=== PATIENT | female | born 2000 | race Caucasian/White ===

== ENCOUNTER 2020-04-12 14:42 | Observation (INO) | payer OTHER ==
[2020-04-12 14:49] VITALS: RESP 18
--- NOTE | 2020-04-12 15:05 | ED ---
Chest Pain HPI - General Source: patient Mode of arrival: ambulatory Limitations: no limitations <Fritz Marie - Last Filed: 04/12/20 18:50> <Cassandra Rodriguez - Last Filed: 04/16/20 11:36> - General Chief Complaint: Chest Pain Stated Complaint: Chest pressure Time Seen by Provider: 04/12/20 14:52 - History of Present Illness Initial Comments: Patient is a 19-year-old female presenting to the emergency department with a chief complaint of chest pressure. Patient reports she woke up this morning and noticed some midsternal chest pressure. States she feels like there is air trapped in her neck. States there is some voice change. Does report shortness of breath at rest. States last night she inhaled nitrous for the first time. States it was large amount of pressure that went into her lungs. Denies lightheadedness or dizziness. States she was at the urgent care today and advised to come to the emergency department. (Fritz Marie) - Related Data Home Medications Medication Instructions Recorded Confirmed Omeprazole 20 mg PO DAILY 04/12/20 04/12/20 Allergies Allergy/AdvReac Type Severity Reaction Status Date / Time No Known Allergies Allergy Verified 04/12/20 15:41 Review of Systems ROS Other: All systems not noted in ROS Statement are negative. <Fritz Marie - Last Filed: 04/12/20 18:50> ROS Other: All systems not noted in ROS Statement are negative. <Cassandra Rodriguez - Last Filed: 04/16/20 11:36> ROS Statement: Those systems with pertinent positive or pertinent negative responses have been documented in the HPI. EKG Findings - EKG Comments: EKG Findings:: Sinus rhythm, no ST or T-wave changes. Objective rate 80, IN 152, QRS 92, QTC 438. <Fritz Marie - Last Filed: 04/12/20 18:50> Past Medical History Past Medical History: No Reported History Additional Past Medical History / Comment(s): gerd History of Any Multi-Drug Resistant Organisms: None Reported Past Surgical History: No Surgical Hx Reported Past Psychological History: No Psychological Hx Reported Smoking Status: Never smoker Past Alcohol Use History: Unable to Obtain Past Drug Use History: None Reported <Fritz Marie - Last Filed: 04/12/20 18:50> General Exam Limitations: no limitations General appearance: alert, in no apparent distress Head exam: Present: atraumatic, normocephalic, normal inspection Eye exam: Present: normal appearance, PERRL, EOMI Pupils: Present: normal accommodation ENT exam: Present: normal exam, mucous membranes moist Neck exam: Present: normal inspection, full ROM, other Respiratory exam: Present: normal lung sounds bilaterally, stridor. Absent: respiratory distress, wheezes, rales, rhonchi Cardiovascular Exam: Present: regular rate, normal rhythm, normal heart sounds. Absent: systolic murmur, diastolic murmur Extremities exam: Present: normal inspection, full ROM Back exam: Present: normal inspection, full ROM Neurological exam: Present: alert, oriented X3 Psychiatric exam: Present: normal affect, normal mood Skin exam: Present: warm, dry, intact, normal color <Fritz Marie - Last Filed: 04/12/20 18:50> Course Vital Signs 04/12/20 04/12/20 04/12/20 14:47 15:41 16:20 Temperature 98.2 F Pulse Rate 88 66 Respiratory 18 18 18 Rate Blood Pressure 121/81 120/80 O2 Sat by Pulse 98 97 Oximetry 04/12/20 04/12/20 19:08 19:09 Temperature 98.2 F Pulse Rate 66 66 Respiratory 18 18 Rate Blood Pressure 122/87 122/87 O2 Sat by Pulse 97 97 Oximetry Chest Pain [facility] - Differential Diagnosis Pneumomediastinum <Fritz Marie - Last Filed: 04/12/20 18:50> <Cassandra Rodriguez - Last Filed: 04/16/20 11:36> - [facility] Patient is a 19-year-old female presenting to emergency Department with chief complaint of chest pain. EKG is unremarkable. X-ray reveals a pneumomediastinum. CT was obtained confirming the diagnosis. Patient appears to have extensive amounts of air in the upper chest and neck. Patient also reports some changes in her voice. I suspect the pneumomediastinum secondary to inhalation of nitrous last night. Patient otherwise feels well. also examined the patient. She spoke with and Dr. Longo like to admit the patient further medical management. Repeat imaging will be obtained in the morning. Admitting physician is . Dr. Longo on consult (Fritz Marie) I was available for consultation in the emergency department. The history and physical exam were done by the midlevel provider. I was consulted for this patients care. I reviewed the case with the midlevel provider and based on their presentation of the patient, I agree with the assessment, medical decision making and plan of care as documented. Chart was dictated using Zollo dictation software. Attempts were made to correct any dictation errors however some typographical errors may persist. Patient was seen during a national state of emergency due to the Covid-19 pandemic. (Cassandra Rodriguez) Disposition Is patient prescribed a controlled substance at d/c from ED?: No Time of Disposition: 18:53 <Fritz Marie - Last Filed: 04/12/20 18:50> <Cassandra Rodriguez - Last Filed: 04/16/20 11:36> Clinical Impression: Pneumomediastinum Disposition: ADMITTED IP TO THIS HOSP Condition: Stable
--- NOTE | 2020-04-12 15:44 | XR ---
EXAMINATION TYPE: XR chest 2V DATE OF EXAM: 04/12/2020 COMPARISON: NONE HISTORY: Chest pain TECHNIQUE: 2 views FINDINGS: There is pneumomediastinum with air also in the soft tissues at the base of the neck bilate rally. Heart is normal. Costophrenic angles are clear. The lungs are clear of infiltrate. There is no pneumothorax. Bony thorax is intact. IMPRESSION: There is pneumomediastinum. Findings were discussed with patient's physician at 3:41 PM.
[2020-04-12] MEDS ORDERED: RX INFO: IV CONTRAST WAS GIVEN 1 EACH MISC MISCELLANE PRN (16:04)
--- NOTE | 2020-04-12 16:57 | CT ---
EXAMINATION TYPE: CT chest w con DATE OF EXAM: 04/12/2020 COMPARISON: None HISTORY: Chest pain, voice changes and SOB CT DLP: 219.7 mGycm Automated exposure control for dose reduction was used. CONTRAST: Performed with IV Contrast, patient injected with 100 mL of Isovue 300. Images were obtained from the thoracic inlet to the diaphragm with intravenous contrast. FINDINGS: There is extensive soft tissue air at the base of the neck extending around the thyroid gland and int o the mediastinum. There is air around the trachea and esophagus. Heart size is normal. There is no m ediastinal adenopathy. There are no hilar masses. There is no pericardial effusion. The lungs are damien ar of infiltrate. There is no pneumothorax. Bony thorax is intact. Pulmonary vascularity is normal. T here is normal contrast opacification of the pulmonary arteries. IMPRESSION: Pneumomediastinum. There is probably no change compared to chest x-ray today. No pneumothorax. No acu te lung disease.
[2020-04-12] MEDS ORDERED: MORPHINE SULFATE 4 MG/ML SYRINGE IV PRN (18:37)
[2020-04-12] MEDS ORDERED: NALOXONE 0.4 MG/ML 1 ML VIAL IV PRN (18:37)
[2020-04-12] MEDS ORDERED: ACETAMINOPHEN TAB 325 MG TAB PO PRN (18:37)
[2020-04-12] MEDS ORDERED: ONDANSETRON 4 MG/2 ML VIAL IVP PRN (18:37)
[2020-04-12] MEDS: KETOROLAC 30 MG/ML 1 ML VIAL IVP PRN (19:43)
[2020-04-13] MEDS: KETOROLAC 30 MG/ML 1 ML VIAL IVP PRN (02:03)
--- NOTE | 2020-04-13 08:23 | XR ---
EXAMINATION TYPE: XR chest 2V DATE OF EXAM: 04/13/2020 COMPARISON: 04/12/2020 HISTORY: Pneumomediastinum. Follow-up exam. TECHNIQUE: Frontal and lateral views of the chest are obtained. FINDINGS: Pneumomediastinum is redemonstrated minimal improved subcutaneous emphysema of the and nec k. Lungs are well aerated. No pneumothorax seen. No new focal consolidation. Cardiomediastinal silhou ette size is within normal limits. IMPRESSION: Stable minimal pneumomediastinum and improving of the neck.
[2020-04-13 08:44] VITALS: BP 102/66; PULSE 67; TEMP 97.7
--- NOTE | 2020-04-13 09:27 | P.HPIM ---
History of Present Illness H&P Date: 04/12/20 Chief Complaint: chest pain 19 yo female presents to the ED with chest pain and pressure. She reports inhaling nitrous for the first time yesterday with a large amount of pressurized gas entering her lungs. She did not experience any significant pain at the time, but the following morning she woke up with severe neck and chest pain, with the sensation that "air is trapped under my neck". She also complains of shortness of breath, change in voice, no difficulty swallowing, denies any dizziness, no syncope, no cough, fever or chills. She went to an urgent care and was redirected to the ED after a finding of a pneumo-mediastinum. In the ED vitals and oxygenation were normal, CT of the chest and neck confirmed the findings on XR. patient will be admitted for close observation over the next 24 hrs. Review of Systems Constitutional: Denies chills, Denies fatigue, Denies fever, Denies sweats Ears, nose, mouth and throat: Reports dysphagia, Reports neck fullness/pressure, Denies headache, Denies hoarseness, Denies swelling in mouth Cardiovascular: Reports chest pain Respiratory: Reports dyspnea, Denies congestion, Denies cough Gastrointestinal: Reports heartburn, Denies diarrhea, Denies nausea, Denies vomiting Musculoskeletal: Denies arm numbness/tingling, Denies leg numbness/tingling, Denies limitation of motion Integumentary: Denies rash Neurological: Reports change in speech, Denies confusion, Denies headaches, Denies numbness Past Medical History Additional Past Medical History / Comment(s): gerd History of Any Multi-Drug Resistant Organisms: None Reported Past Surgical History: No Surgical Hx Reported Past Anesthesia/Blood Transfusion Reactions: No Reported Reaction Past Psychological History: No Psychological Hx Reported Smoking Status: Never smoker Past Alcohol Use History: Daily Past Drug Use History: Marijuana - Past Family History Father History Unknown: Yes Family Medical History: CVA/TIA, Hypertension Mother Family Medical History: No Reported History Medications and Allergies Home Medications Medication Instructions Recorded Confirmed Type Omeprazole 20 mg PO DAILY 04/12/20 04/12/20 History Allergies Allergy/AdvReac Type Severity Reaction Status Date / Time No Known Allergies Allergy Verified 04/12/20 15:41 Physical Exam Osteopathic Statement: *. No significant issues noted on an osteopathic structural exam other than those noted in the History and Physical/Consult. Vitals: Vital Signs Temp Pulse Pulse Resp BP BP Pulse Ox 04/13/20 03:08 59 L 18 04/13/20 03:03 96.1 F L 59 L 18 104/58 99 04/12/20 23:39 96.9 F L 88 18 106/56 100 04/12/20 23:35 88 18 04/12/20 20:00 96.7 F L 73 18 111/65 100 04/12/20 19:09 98.2 F 66 18 122/87 97 04/12/20 19:08 66 18 122/87 97 04/12/20 16:20 66 18 120/80 97 04/12/20 15:41 18 04/12/20 14:47 98.2 F 88 18 121/81 98 Intake and Output 04/12/20 04/13/20 04/13/20 22:59 06:59 14:59 Other: # Voids 1 Weight 49.895 kg - Constitutional General appearance: average body habitus, cooperative, no no acute distress - EENT Eyes: EOMI, PERRLA - Neck extensive b/l crepitus on the anterior and lateral sides of the neck Neck: no lymphadenopathy, normal ROM, no rigidity - Respiratory Respiratory: bilateral: CTA, negative: rhonchi, wheezing - Cardiovascular Rhythm: regular Heart sounds: normal: S1, S2 Abnormal Heart Sounds: no systolic murmur, no diastolic murmur - Gastrointestinal General gastrointestinal: no distended, normal bowel sounds, no tenderness - Integumentary Integumentary: no cyanotic, no jaundiced, no pale, no rash - Neurologic Neurologic: CNII-XII intact - Musculoskeletal Musculoskeletal: strength equal bilaterally - Psychiatric Psychiatric: A&O x's 3, appropriate affect Thrombosis Risk Factor Assmnt - Choose All That Apply Any of the Below Risk Factors Present?: No Other Risk Factors: No Other congenital or acquired thrombophilia - If yes, enter type in comment: No Thrombosis Risk Factor Assessment Level: Very Low Risk Assessment and Plan Plan: # Pneumomediastinum -induced by inhaling pressurized nitrous gas -CT neck shows extensive subcutaneous air trapping -oxygenation, respiratory status stable -pain control -repeat CXR in am -appreciate further input from pulmonology # Substance abuse -patient has history of daily alcohol consumption, marijuana, and recently nitrous gas -counseled on alcohol and drug cessation # GERD -continue Omeprazole Anticipated DC home in the next 24 hrs Time with Patient: Greater than 30
--- NOTE | 2020-04-13 10:26 | CONS ---
CONSULTATION PULMONARY/CRITICAL CARE CONSULTATION: DATE OF CONSULTATION: 04/13/2020 This is a 19-year-old female with a history of acid reflux disease. She apparently was intoxicated with her boyfriend. She did a Whip[employer]It. This is compressed nitrous oxide. Unfortunately, she developed a pneumomediastinum by doing the Whip-It She was seen in the emergency room by Dr. Rodriguez. She had a change in her voice. In addition, she had significant pain in the chest and neck area as well as subcutaneous emphysema and also pneumomediastinum. She did not have a pneumothorax. Currently, the patient is doing better. Her chest x-ray and CT scan from yesterday are reviewed. Today's chest x-ray is improved. I did tell the patient that this typically would resolve on its own and I will see her in the office tomorrow just to get a followup chest x-ray. The patient otherwise states that she is healthy and feeling almost back to normal. She states her voice is a little off still. HOME MEDICATIONS: Include primarily omeprazole for her acid reflux disease. ALLERGIES: Denied. MEDICAL HISTORY: Acid reflux disease. SOCIAL HISTORY: Denied. FAMILY HISTORY: Family history is unremarkable. Her father did from a stroke when she was 10 years of age. Mother is healthy. She denies tobacco use. She does drink alcohol from time to time. Denies any other illicit drug use. She denies vaping and using marijuana. SURGICAL HISTORY: As I mentioned, is unremarkable. REVIEW OF SYSTEMS: CONSTITUTIONAL: Negative. NEUROLOGIC: Negative. HEENT: Change in voice, which is resolved, and pain in the neck area. CARDIOVASCULAR: Negative. PULMONARY: Shortness of breath and chest discomfort, improved. GI: Negative. : Negative. RHEUMATOLOGIC: Negative. IMMUNOLOGIC: Negative. ENDOCRINOLOGIC: Negative, DERMATOLOGIC: Negative. PHYSICAL EXAMINATION: VITAL SIGNS: Current vital signs are reviewed. Her temperature is 97.7, heart rate 67, respiratory rate 18, blood pressure 102/66, mean 78, room air saturation is 100%. Appears in no acute distress. HEENT: Examination is unremarkable. NECK: Supple. Full range of motion. No adenopathy or thyromegaly. Neck veins are flat. I do not feel any subcutaneous emphysema. CARDIOVASCULAR: Examination reveals regular rhythm rate. S1, S2 normal. LUNGS: Reveal clear breath sounds equal. ABDOMEN: Soft. Bowel sounds are heard. EXTREMITIES are intact. No cyanosis, clubbing, or edema. SKIN: Without rash. NEUROLOGIC: Examination is brief but non focal. X-rays from yesterday and today are both reviewed. The CT scan from April 12 was also reviewed. There is no lab work that was done. Current medications include Tylenol, Toradol, morphine, Narcan, Zofran. ASSESSMENT: 1. Subcutaneous emphysema and pneumomediastinum secondary to inhaling compressed nitrous oxide in a can of [employer]. 2. History of acid reflux disease. PLAN: Currently, her chest x-ray is improved. Her subcutaneous emphysema is less. I do not feel Gerardo's crunch. She will follow up with me in the office either Tuesday or Tuesday for a followup chest x-ray. No additional recommendations are made. I encouraged her to take it easy today, not smoke cigarettes or do any drugs and not drink any alcohol. She apparently was intoxicated when she did the compressed nitrous oxide. I told her not to do it again. Additional recommendations and suggestions are forthcoming. MMODL / IJN: [id number] / MTDD
--- NOTE | 2020-04-13 11:11 | P.DS ---
Providers Date of admission: 04/12/20 18:49 Attending physician: Amber Pittman MD Consults: 04/12/20 18:23 Consult Physician Routine Consulting Provider: Mitchell Longo Consult Reason/Comments: pneumomediastinum Do you want consulting provider notified?: Already Contacted Primary care physician: Stated None Hospital Course: 19 yo female presents to the ED with chest pain and pressure. She reports inhali ng nitrous for the first time yesterday with a large amount of pressurized gas entering her lungs. She did not experience any significant pain at the time, but the following morning she woke up with severe neck and chest pain, with the sensation that "air is trapped under my neck". She also complains of shortness of breath, change in voice, no difficulty swallowing, denies any dizziness, no syncope, no cough, fever or chills. She went to an urgent care and was redirected to the ED after a finding of a pneumo-mediastinum. In the ED vitals and oxygenation were normal, CT of the chest and neck confirmed the findings on XR. Repeat CXR the following morning showed improvement of the subcutaneous air. Pain has improved significantly, vitals and oxygenation have been normal. Patient will be discharged home in stable condition. Instructed to use OTC NSAIDs or Acetaminophen for pain control, follow up with pulmonology Constitutional General appearance: average body habitus, cooperative, no no acute distress - EENT Eyes: EOMI, PERRLA - Neck improved b/l crepitus on the anterior and lateral sides of the neck Neck: no lymphadenopathy, normal ROM, no rigidity - Respiratory Respiratory: bilateral: CTA, negative: rhonchi, wheezing - Cardiovascular Rhythm: regular Heart sounds: normal: S1, S2 Abnormal Heart Sounds: no systolic murmur, no diastolic murmur - Gastrointestinal General gastrointestinal: no distended, normal bowel sounds, no tenderness - Integumentary Integumentary: no cyanotic, no jaundiced, no pale, no rash - Neurologic Neurologic: CNII-XII intact -Musculoskeletal Musculoskeletal: strength equal bilaterally - Psychiatric Psychiatric: A&O x's 3, appropriate affect Assessment and Plan Plan: # Pneumomediastinum -induced by inhaling pressurized nitrous gas -CT neck shows extensive subcutaneous air trapping -repeat CXR shows improvement -follow up with Pulmonology in 2-3 days # Substance abuse -patient has history of daily alcohol consumption, marijuana, and recently nitrous gas -counseled on alcohol and drug cessation # GERD -continue Omeprazole Patient Condition at Discharge: Stable Plan - Discharge Summary Discharge Rx Participant: No New Discharge Prescriptions: No Action Omeprazole 20 mg PO DAILY Discharge Medication List Omeprazole 20 mg PO DAILY 04/12/20 [History] Follow up Appointment(s)/Referral(s): Mitchell Longo DO [Doctor of Osteopathic Medicine] - 1-2 Days (Call office on Tuesday morning to schedule appointment on Tuesday or Tuesday of this week with Dr. Longo) None,Stated [Primary Care Provider] - 1-2 days Discharge Disposition: HOME SELF-CARE
== END 2020-04-13 11:01 | disposition home or self-care (01) ==
LOC: EC 14:42 → 1SOBS 18:49
PROVIDERS: ADMIT Internal Medicine; ATTEND Internal Medicine
DX: T79.7XXA Traumatic subcutaneous emphysema, initial encounter (principal); F18.188 Inhalant abuse with other inhalant-induced disorder; F10.10 Alcohol abuse, uncomplicated; F12.10 Cannabis abuse, uncomplicated; Z11.59 Encounter for screening for other viral diseases; K21.9 Gastro-esophageal reflux disease without esophagitis; Z79.899 Other long term (current) drug therapy; Z82.49 Family history of ischemic heart disease and other diseases of the circulatory system; Z82.3 Family history of stroke
CPT/HCPCS: 96374; 96376; 99285; 93005; 71046 ×2; 71260; G0378 ×2; U0003; J1885 ×2; Q9967

== ENCOUNTER 2024-07-28 17:59 | Emergency (ER) | payer OTHER ==
[2024-07-28 18:15] VITALS: RESP 16; TEMP 98.3
--- NOTE | 2024-07-28 18:18 | ED ---
General Adult HPI - General Chief complaint: Overdose Stated complaint: overdose Time Seen by Provider: 07/28/24 18:11 Source: patient, EMS Mode of arrival: EMS Limitations: no limitations - History of Present Illness Initial comments: Patient brought to the ED by EMS for evaluation. Patient states that she snorted ketamine earlier today and went into a "K hole". She states that somebody called for an ambulance for her, but she does not want to be here in the emergency room. Patient states that she is scheduled to go to rehab for ketamine and alcohol abuse on Tuesday. Patient admits to drinking "2 shots of tequila and 2 sips of wine" today. Patient denies any other illicit drug use. Patient denies prescription medication abuse or overdose. Patient denies suicidal attempt or ideations. Patient denies having any pain, fever or chills, headache, focal neuro deficit, chest pain, dyspnea, palpitations, dizziness, abdominal pain, nausea or vomiting, or any other symptoms or complaints. Patient states that her mother will come pick her up from the ED today. - Related Data Home Medications Medication Instructions Recorded Confirmed Omeprazole 20 mg PO DAILY 04/12/20 04/12/20 Allergies Allergy/AdvReac Type Severity Reaction Status Date / Time No Known Allergies Allergy Verified 07/28/24 18:16 Review of Systems ROS Statement: Those systems with pertinent positive or pertinent negative responses have been documented in the HPI. ROS Other: All systems not noted in ROS Statement are negative. Past Medical History Past Medical History: No Reported History Additional Past Medical History / Comment(s): gerd History of Any Multi-Drug Resistant Organisms: None Reported Past Surgical History: No Surgical Hx Reported Past Anesthesia/Blood Transfusion Reactions: No Reported Reaction Past Psychological History: No Psychological Hx Reported Smoking Status: Current every day smoker Past Alcohol Use History: Abuse, Daily Past Drug Use History: Marijuana - Past Family History Father History Unknown: Yes Family Medical History: CVA/TIA, Hypertension Mother Family Medical History: No Reported History General Exam Limitations: no limitations General appearance: alert, in no apparent distress Head exam: Present: atraumatic, normocephalic Eye exam: Present: PERRL, EOMI ENT exam: Present: mucous membranes moist Respiratory exam: Present: normal lung sounds bilaterally. Absent: respiratory distress, wheezes, rales, rhonchi, stridor Cardiovascular Exam: Present: regular rate, normal rhythm, normal heart sounds, other (Normal radial pulses bilaterally) GI/Abdominal exam: Present: soft. Absent: distended, tenderness, guarding Neurological exam: Present: alert, oriented X3. Absent: motor sensory deficit Psychiatric exam: Present: normal affect, normal mood Skin exam: Present: warm, dry, intact, normal color Course Vital Signs 07/28/24 18:08 Temperature 98.3 F Pulse Rate 84 Respiratory 16 Rate Blood Pressure 126/86 O2 Sat by Pulse 99 Oximetry - Reevaluation(s) Reevaluation #1: 07/28/24 21:07 Patient has been observed in the ED for over 3 hours now, and she remains A&O x 4 and breathing comfortably. Patient denies development of any new symptoms while in the ED. Patient's mother has come to the ED to pick her up. Will discharge patient from the ED with her mother at this time. Patient was counseled about ketamine abuse and alcohol abuse, and she was clearly explained return and follow-up instructions. She was instructed to follow-up closely with her primary care provider. She feels comfortable with this plan. Medical Decision Making - Medical Decision Making Was pt. sent in by a medical professional or institution (, PA, INKING MACHINE TENDER, urgent care, hospital, or alf...) When possible be specific @ -No Did you speak to anyone other than the patient for history (EMS, parent, family, police, friend...)? What history was obtained from this source @ -No Did you review nursing and triage notes (agree or disagree)? Why? @ -I reviewed and agree with nursing and triage notes Were old charts reviewed (outside hosp., previous admission, EMS record, old EKG, old radiological studies, urgent care reports/EKG's, alf records)? Report findings @ -No old charts were reviewed Differential Diagnosis (chest pain, altered mental status, abdominal pain women, abdominal pain men, vaginal bleeding, weakness, fever, dyspnea, syncope, headache, dizziness, GI bleed, back pain, seizure, CVA, palpatations, mental health, musculoskeletal)? @ -Drug abuse, alcohol abuse, ketamine abuse, medication abuse, illicit drug use, psychiatric disease EKG interpreted by me (3pts min.). @ -None done X-rays interpreted by me (1pt min.). @ -None done CT interpreted by me (1pt min.). @ -None done U/S interpreted by me (1pt. min.). @ -None done What testing was considered but not performed or refused? (CT, X-rays, U/S, labs)? Why? @ -None What meds were considered but not given or refused? Why? @ -None Did you discuss the management of the patient with other professionals (professionals i.e. DrRickey, PA, INKING MACHINE TENDER, lab, RT, psych nurse, social sciences professor, indoor landscape architect, teacher, forward air controller/air officer, rn case manager)? Give summary @ -No Was smoking cessation discussed for >3mins.? @ -No Was critical care preformed (if so, how long)? @ -No Were there social determinants of health that impacted care today? How? (Homelessness, low income, unemployed, alcoholism, drug addiction, trans portation, low edu. Level, literacy, decrease access to med. care, assisted, rehab)? @ -No Was there de-escalation of care discussed even if they declined (Discuss DNR or withdrawal of care, Hospice)? DNR status @ -No What co-morbidities impacted this encounter? (DM, HTN, Smoking, COPD, CAD, Cancer, CVA, ARF, Chemo, Hep., AIDS, mental health diagnosis, sleep apnea, morbid obesity)? @ -None Was patient admitted / discharged? Hospital course, mention meds given and route, prescriptions, significant lab abnormalities, going to OR and other pertinent info. @ -Patient has been A&O x 4 while in the ED and has been asking to be discharged. Patient denies suicidal ideations or attempt. Patient states that she will be admitting herself for rehab on Tuesday. Patient's mother has come to the ED to pick her up. Will discharge patient home with her mother at this time. Undiagnosed new problem with uncertain prognosis? @ -No Drug Therapy requiring intensive monitoring for toxicity (Heparin, Nitro, Insulin, Cardizem)? @ -No Were any procedures done? @ -No Diagnosis/symptom? @ -Ketamine and alcohol abuse Acute, or Chronic, or Acute on Chronic? @ -Default Uncomplicated (without systemic symptoms) or Complicated (systemic symptoms)? @ -Default Side effects of treatment? @ -No Exacerbation, Progression, or Severe Exacerbation? @ -No Poses a threat to life or bodily function? How? (Chest pain, [place], [place], pneumonia, PE, COPD, DKA, ARF, appy, cholecystitis, CVA, Diverticulitis, Homicidal, Suicidal, threat to staff... and all critical care pts) @ -No Disposition Clinical Impression: Alcohol abuse, Mild ketamine abuse Disposition: HOME SELF-CARE Condition: Stable Instructions (If sedation given, give patient instructions): Abuse of Alcohol (ED), Polysubstance Abuse (ED) Additional Instructions: Return to the ER immediately should you develop thoughts of hurting yourself or others, any significant pain, feeling dizzy or faint, shortness of breath, or new or worsening symptoms. Follow-up closely with your primary care provider. Is patient prescribed a controlled substance at d/c from ED?: No Referrals: None,Stated [REFERRING] - 1-2 days Christopher Rodriguez DO [STAFF PHYSICIAN] - 1-2 days Time of Disposition: 21:06
[2024-07-28 21:12] VITALS: BP 125/83; PULSE 75
== END 2024-07-28 21:12 | disposition home or self-care (01) ==
LOC: EC 17:59
DX: T50.901A Poisoning by unspecified drugs, medicaments and biological substances, accidental (unintentional), initial encounter
CPT/HCPCS: 99283